=== PATIENT | male | born 1975 | race Hispanic/Latino ===

== ENCOUNTER → 2023-12-21 | Day surgery (SDC) | payer BC ==
[~2023-12-21] MED LIST: AMLODIPINE BESY10 MG PO; FENTANYL CITRATE/PF 100MCG/2 ML INJ ONE; HYDROCHLOROTHIA25 MG PO; LOSARTAN PO; MIDAZOLAM HCL 2 MG/2 ML VIAL ONE; OMEPRAZOLE40 MG PO; PROPOFOL IV EMULSION 10 MG/ML 20 ML VIAL ONE; PROPOFOL IV EMULSION 50 ML IV ONE
[2023-12-21] MEDS: LACTATED RINGER'S 1,000 ML ONE (15:11)
[2023-12-21 16:05] VITALS: BP 152/91; PULSE 84; RESP 18; O2SAT 98
== END | disposition home or self-care (01) ==
LOC: OR 14:40
PROVIDERS: ATTEND Internal Medicine Gastroenterology
DX: K21.9 Gastro-esophageal reflux disease without esophagitis (principal); D12.3 Benign neoplasm of transverse colon; D12.4 Benign neoplasm of descending colon; K29.70 Gastritis, unspecified, without bleeding; K31.89 Other diseases of stomach and duodenum; R13.10 Dysphagia, unspecified; K44.9 Diaphragmatic hernia without obstruction or gangrene; K59.00 Constipation, unspecified; K64.8 Other hemorrhoids; I10 Essential (primary) hypertension; E78.5 Hyperlipidemia, unspecified; R06.02 Shortness of breath; E66.9 Obesity, unspecified; Z01.810 Encounter for preprocedural cardiovascular examination; Z79.899 Other long term (current) drug therapy; Z68.43 Body mass index [BMI] 50.0-59.9, adult
CPT/HCPCS: 43239; 45385; 93005; J2250; J2704 ×2; J3010; J7121

== ENCOUNTER → 2023-12-27 | Outpatient (REF) | payer BC ==
[~2023-12-27] MED LIST changes: -FENTANYL CITRATE/PF 100MCG/2 ML INJ ONE; -MIDAZOLAM HCL 2 MG/2 ML VIAL ONE; -PROPOFOL IV EMULSION 10 MG/ML 20 ML VIAL ONE; -PROPOFOL IV EMULSION 50 ML IV ONE
== END ==
LOC: US 07:44
PROVIDERS: ATTEND Internal Medicine Gastroenterology
DX: R74.8 Abnormal levels of other serum enzymes (principal)
CPT/HCPCS: 76705

== ENCOUNTER → 2024-01-17 | Outpatient (REF) | payer BC | LOC: US 11:29 | PROVIDERS: ATTEND Urology | DX: N52.9 Male erectile dysfunction, unspecified (principal); I86.1 Scrotal varices | CPT/HCPCS: 76870; 93976 ==